=== PATIENT | female | born 1980 | race African-American/Black ===

== ENCOUNTER 2017-01-25 12:21 | Emergency (ER) | payer BC ==
[~2017-01-25] VITALS: Ht 165.1 cm; Wt 134.3 kg
[2017-01-25 12:31] VITALS: TEMP 36.9; Ht 165.1 cm; Wt 134.3 kg
--- NOTE | 2017-01-25 12:55 | EMERGENCY ROOM VISIT NOTE ---
History Report prepared by Mila: Sanaz Salcedo Under the Supervision of: Dr. Anthony Dixon M.D. First contact with patient: 12:46 Chief Complaint: ED VAG BLEEDING Stated Complaint: SPOTTING, CRAMPING History of Present Illness The patient is a 36 year old female who presents to the Emergency Room with complaints of persistent vaginal bleeding that began last night. She currently rates her discomfort as a 3/10 in severity. The patient states that she is currently , but is unsure if her last menstrual period was in September or October, noting that her cycles are irregular. She reports that this is her fourth , noting that she has three children at home. The patient associates abdominal cramping, noting that they feel like menstrual cramps. 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 Source of History: patient Onset: last night Position: other (vaginal) Symptom Intensity: 3/10 Quality: other (bleeding) Timing: other (persistent) Associated Symptoms: + abdominal pain (cramping) Review of Systems See HPI for pertinent positives & negatives. A total of 10 systems reviewed and were otherwise negative. Past Medical & Surgical Medical Problems: (1) No active medical problems Family History Cancer Diabetes mellitus Heart disease Hypertension Social History Smoking Status: Former Smoker Smokeless Tobacco Use: No Alcohol Use: none Housing Status: lives with family Occupation Status: employed Current/Historical Medications No Active Prescriptions or Reported Meds Allergies Coded Allergies: Acetaminophen (Unverified Adverse Reaction, Severe, TONGUE SWELLING, CAN' T BREATHE, 01/25/17) Oxycodone (Unverified Adverse Reaction, Severe, TONGUE SWELLING, CAN'T BREATHE, 01/25/17) Physical Exam Vital Signs Date Time Temp Pulse Resp B/P (MAP) Pulse Ox O2 Delivery O2 Flow Rate FiO2 01/25/17 15:13 87 18 137/81 99 01/25/17 14:35 86 18 112/85 100 Room Air 01/25/17 12:31 36.9 93 18 146/84 99 Room Air Physical Exam GENERAL: Patient is a healthy-appearing well-nourished female HEAD: Normocephalic atraumatic EYES: Ocular movements intact pupils equal and react to light OROPHARYNX mucous membranes are moist no exudates present no erythema or edema present NECK: Supple no nuchal rigidity CHEST: Good equal expansion LUNGS: Clear and equal to auscultation CARDIAC: Normal S1 and S2 ABDOMEN: Soft nontender no guarding BACK: No CVA tenderness EXTREMITIES: No pain upon palpation normal muscle strength in all groups no clubbing cyanosis or edema NEURO: Patient is following commands and answering questions appropriately. Alert and oriented x3 Cranial Nerves 2-12 grossly intact Medical Decision & Procedures ER Provider Diagnostic Interpretation: Radiology results as stated below per my review and radiologist interpretation: <14 WKS SINGLE, TRANSVAG-FEMALE PELVIS CLINICAL HISTORY: 36 years-old Female presenting with Pt c/o preg, vag bleeding. TECHNIQUE: Real-time grayscale and color and spectral Doppler ultrasound imaging of the pelvis was performed first using a transabdominal probe and subsequently transvaginal for better characterization. COMPARISON: None. FINDINGS: Uterus: No definite gestational sac is visualized within the endometrial canal. Anteverted uterus which is mildly enlarged measuring 12.5 x 7.5 x 8.7 cm. Endometrium measures 16 mm in thickness and is normal appearing. Multiple nabothian cysts present in the cervix. Cervix may contain trace endocervical fluid. Streaky shadowing across the uterus may suggest the presence of adenomyosis. Questionable fibroid may be present at the left fundus measuring 1.5 cm. Right adnexa: Right ovary contains a corpus luteum. Right ovary measures 3.1 x 2.2 x 3.0 cm. Normal color Doppler flow and arterial and venous waveforms within the ovarian parenchyma. Left adnexa: Left ovary normal. Left ovary measures 4.5 x 1.6 x 3.7 cm. Normal color Doppler flow on transabdominal imaging. Other: No free fluid. IMPRESSION: 1. No definite gestational sac within the endometrial canal. This is consistent with of unknown location. However, no evidence to suggest ectopic . Continued clinical and imaging follow-up is advised with tracking of quantitative beta-hCG. 2. Suggestion of adenomyosis and possible small fibroid. 3. Normal ovaries with right corpus luteum. Electronically signed by: Mike Mata M.D. 01/25/2017 2:37 PM Dictated Date/Time: 01/25/2017 2:32 PM <14 WKS SINGLE, TRANSVAG-FEMALE PELVIS CLINICAL HISTORY: 36 years-old Female presenting with Pt c/o preg, vag bleeding. TECHNIQUE: Real-time grayscale and color and spectral Doppler ultrasound imaging of the pelvis was performed first using a transabdominal probe and subsequently transvaginal for better characterization. COMPARISON: None. FINDINGS: Uterus: No definite gestational sac is visualized within the endometrial canal. Anteverted uterus which is mildly enlarged measuring 12.5 x 7.5 x 8.7 cm. Endometrium measures 16 mm in thickness and is normal appearing. Multiple nabothian cysts present in the cervix. Cervix may contain trace endocervical fluid. Streaky shadowing across the uterus may suggest the presence of adenomyosis. Questionable fibroid may be present at the left fundus measuring 1.5 cm. Right adnexa: Right ovary contains a corpus luteum. Right ovary measures 3.1 x 2.2 x 3.0 cm. Normal color Doppler flow and arterial and venous waveforms within the ovarian parenchyma. Left adnexa: Left ovary normal. Left ovary measures 4.5 x 1.6 x 3.7 cm. Normal color Doppler flow on transabdominal imaging. Other: No free fluid. IMPRESSION: 1. No definite gestational sac within the endometrial canal. This is consistent with of unknown location. However, no evidence to suggest ectopic . Continued clinical and imaging follow-up is advised with tracking of quantitative beta-hCG. 2. Suggestion of adenomyosis and possible small fibroid. 3. Normal ovaries with right corpus luteum. Electronically signed by: Mike Mata M.D. 01/25/2017 2:37 PM Dictated Date/Time: 01/25/2017 2:32 PM Laboratory Results 01/25/17 13:02 Red Blood Count 4.12, Mean Corpuscular Volume 84.5, Mean Corpuscular Hemoglobin 28.4, Mean Corpuscular Hemoglobin Concent 33.6, Mean Platelet Volume 9.4, Neutrophils (%) (Auto) 60.5, Lymphocytes (%) (Auto) 28.7, Monocytes (%) (Auto) 5.8, Eosinophils (%) (Auto) 4.6, Basophils (%) (Auto) 0.3, Neutrophils # (Auto) 4.71, Lymphocytes # (Auto) 2.23, Monocytes # (Auto) 0.45, Eosinophils # (Auto) 0.36, Basophils # (Auto) 0.02 01/25/17 13:02 Test 01/25/17 00:00 01/25/17 13:02 Urine Color YELLOW Urine Appearance CLEAR (CLEAR) Urine pH 7.0 (4.5-7.5) Urine Specific [place] 1.022 (1.000-1.030) Urine Protein NEG (NEG) Urine Glucose (UA) NEG (NEG) Urine Ketones NEG (NEG) Urine Occult Blood 3+ (NEG) Urine Nitrite NEG (NEG) Urine Bilirubin NEG (NEG) Urine Urobilinogen NEG (NEG) Urine Leukocyte Esterase TRACE (NEG) Urine WBC (Auto) 5-10 /hpf (0-5) Urine RBC (Auto) 10-30 /hpf (0-4) Urine Hyaline Casts (Auto) 1-5 /lpf (0-5) Urine Epithelial Cells (Auto) >30 /lpf (0-5) Urine Bacteria (Auto) 1+ (NEG) Urine Test POS (NEG) White Blood Count 7.78 K/uL (4.8-10.8) Red Blood Count 4.12 M/uL (4.2-5.4) Hemoglobin 11.7 g/dL (12.0-16.0) Hematocrit 34.8 % (37-47) Mean Corpuscular Volume 84.5 fL (80-100) Mean Corpuscular Hemoglobin 28.4 pg (25-34) Mean Corpuscular Hemoglobin Concent 33.6 g/dl (32-36) Platelet Count 343 K/uL (130-400) Mean Platelet Volume 9.4 fL (7.4-10.4) Neutrophils (%) (Auto) 60.5 % Lymphocytes (%) (Auto) 28.7 % Monocytes (%) (Auto) 5.8 % Eosinophils (%) (Auto) 4.6 % Basophils (%) (Auto) 0.3 % Neutrophils # (Auto) 4.71 K/uL (1.4-6.5) Lymphocytes # (Auto) 2.23 K/uL (1.2-3.4) Monocytes # (Auto) 0.45 K/uL (0.11-0.59) Eosinophils # (Auto) 0.36 K/uL (0-0.5) Basophils # (Auto) 0.02 K/uL (0-0.2) RDW Standard Deviation 46.3 fL (36.4-46.3) RDW Coefficient of Variation 14.9 % (11.5-14.5) Immature Granulocyte % (Auto) 0.1 % Immature Granulocyte # (Auto) 0.01 K/uL (0.00-0.02) Prothrombin Time 10.2 SECONDS (9.0-12.0) Prothromb Time International Ratio 1.0 (0.9-1.1) Activated Partial Thromboplast Time 26.8 SECONDS (21.0-31.0) Partial Thromboplastin Ratio 1.0 Anion Gap 5.0 mmol/L (3-11) Est Creatinine Clear Calc Drug Dose 166.1 ml/min Estimated GFR () 132.4 Estimated GFR (Non- 114.2 BUN/Creatinine Ratio 12.9 (10-20) Calcium Level 8.4 mg/dl (8.5-10.1) Total Bilirubin 0.1 mg/dl (0.2-1) Aspartate Amino Transf (AST/SGOT) 9 U/L (15-37) Alanine Aminotransferase (ALT/SGPT) 15 U/L (12-78) Alkaline Phosphatase 72 U/L (45-117) Total Protein 7.0 gm/dl (6.4-8.2) Albumin 2.7 gm/dl (3.4-5.0) Globulin 4.3 gm/dl (2.5-4.0) Albumin/Globulin Ratio 0.6 (0.9-2) Human Chorionic Gonadotropin, Quant 264 mIU/mL Labs reviewed by ED physician. ED Course 1248: Past medical records reviewed. The patient was evaluated in room C10. A complete history and physical examination was performed. 1452: I reevaluated the patient and she is resting comfortably. I discussed the exam findings with her and I discussed the treatment plan. She verbalized complete understanding and agreement. She is ready to go home. Medical Decision Differential diagnosis: Etiologies such as ectopic , dysfunction uterine bleeding, bleeding dyscrasia, trauma, infection, as well as others were entertained. This is a 36-year-old female that presents emergency department complaining of vaginal spotting. The patient are he has an output it with her OB scheduled on Friday. Her beta hCG is exceptionally low at only 264. She was sent for pelvic ultrasound which did not show any acute process. She is nontender on examination. I feel that the patient has most likely suffered a miscarriage but I stressed the need for the patient follow-up with her OB on Friday. Patient was in agreement with the treatment plan. Medication Reconcilliation Current Medication List: was personally reviewed by me Blood Pressure Screening Patient's blood pressure: Elevated blood pressure Blood pressure disposition: Referred to PCP Impression Primary Impression: Threatened miscarriage Scribe Attestation The scribe's documentation has been prepared under my direction and personally reviewed by me in its entirety. I confirm that the note above accurately reflects all work, treatment, procedures, and medical decision making performed by me. Departure Information Dispostion Home / Self-Care Prescriptions No Active Prescriptions or Reported Meds Referrals No Doctor, Assigned (PCP) Forms HOME CARE DOCUMENTATION FORM, IMPORTANT VISIT INFORMATION, WORK / SCHOOL INSTRUCTIONS Patient Instructions ED Miscarriage Poss, My [facility] Additional Instructions Need follow up with OB on Friday BHCG =[phone] You have been examined and treated today on an emergency basis only. This is not a substitute for, or an effort to provide, complete comprehensive medical care. It is impossible to recognize and treat all injuries or illnesses in a single emergency department visit. It is therefore important that you follow up closely with your PCP. Call as soon as possible for an appointment. Thank you for your time and consideration. I look forward to speaking with you again soon. Please don't hesitate to call us if you have any questions.
[2017-01-25 13:16] LABS: BASO % 0.3 %; BASO ABS # 0.02 K/uL (0-0.2); COMPLETE YES; EOS % 4.6 %; HEMATOCRIT 34.8 % (37-47); IG% 0.1 %; LYMPH % 28.7 %; LYMPH ABS # 2.23 K/uL (1.2-3.4); MEAN CELL VOLUME 84.5 fL (80-100); MEAN CORPUSCULAR HEMOGLOBIN 28.4 pg (25-34); MEAN CORPUSCULAR HGB CONC 33.6 g/dl (32-36); MEAN PLATELET VOLUME 9.4 fL (7.4-10.4); MONO % 5.8 %; NEUT % 60.5 %; PLATELET COUNT 343 K/uL (130-400); RED BLOOD COUNT 4.12 M/uL (4.2-5.4); WHITE BLOOD COUNT 7.78 K/uL (4.8-10.8)
[2017-01-25 13:26] LABS: PROTHROMBIN TIME (PATIENT) 10.2 SECONDS (9.0-12.0)
[2017-01-25 13:27] LABS: URINE APPEARANCE CLEAR (CLEAR); URINE BILIRUBIN NEG (NEG); URINE COLOR YELLOW; URINE EPITHELIAL CELL AUTO >30 /lpf (0-5); URINE NITRITE NEG (NEG); URINE SPECIFIC GRAVITY 1.022 (1.000-1.030); UROBILINOGEN NEG (NEG)
[2017-01-25 13:30] LABS: MANUAL MICROSCOPIC REQUIRED? NO; REVIEW REQ? NO
[2017-01-25 13:38] LABS: BUN/CREATININE RATIO 12.9 (10-20); CALCIUM 8.4 mg/dl (8.5-10.1); CREATININE 0.65 mg/dl (0.60-1.20); POTASSIUM 3.8 mmol/L (3.5-5.1)
[2017-01-25 13:41] LABS: ALB/GLOB RATIO 0.6 (0.9-2)
--- NOTE | 2017-01-25 14:38 | DIAGNOSTIC IMAGING REPORT ---
<14 WKS SINGLE, TRANSVAG-FEMALE PELVIS CLINICAL HISTORY: 36 years-old Female presenting with Pt c/o preg, vag bleeding. TECHNIQUE: Real-time grayscale and color and spectral Doppler ultrasound imaging of the pelvis was performed first using a transabdominal probe and subsequently transvaginal for better characterization. COMPARISON: None. FINDINGS: Uterus: No definite gestational sac is visualized within the endometrial canal. Anteverted uterus which is mildly enlarged measuring 12.5 x 7.5 x 8.7 cm. Endometrium measures 16 mm in thickness and is normal appearing. Multiple nabothian cysts present in the cervix. Cervix may contain trace endocervical fluid. Streaky shadowing across the uterus may suggest the presence of adenomyosis. Questionable fibroid may be present at the left fundus measuring 1.5 cm. Right adnexa: Right ovary contains a corpus luteum. Right ovary measures 3.1 x 2.2 x 3.0 cm. Normal color Doppler flow and arterial and venous waveforms within the ovarian parenchyma. Left adnexa: Left ovary normal. Left ovary measures 4.5 x 1.6 x 3.7 cm. Normal color Doppler flow on transabdominal imaging. Other: No free fluid. IMPRESSION: 1. No definite gestational sac within the endometrial canal. This is consistent with of unknown location. However, no evidence to suggest ectopic . Continued clinical and imaging follow-up is advised with tracking of quantitative beta-hCG. 2. Suggestion of adenomyosis and possible small fibroid. 3. Normal ovaries with right corpus luteum. Electronically signed by: Mike Mata M.D. 01/25/2017 2:37 PM Dictated Date/Time: 01/25/2017 2:32 PM
[2017-01-25 15:13] VITALS: BP 137/81; PULSE 87; O2SAT 99
== END 2017-01-25 15:14 | disposition home or self-care (01) ==
LOC: C.EDB 12:23 → C.EDC 15:14
DX: O20.0 Threatened abortion (principal); Z3A.00 Weeks of gestation of pregnancy not specified